=== PATIENT | female | born 1965 | race Two or more races ===

== ENCOUNTER 2019-05-16 06:34 | Day surgery (SDC) | payer OTHER ==
[~2019-05-16 06:34] MED LIST: DAPAGLIFLOZIN PO; KOMBIGLYZE XR1 EAC1 PO; LISINOPRIL10 MG PO; METFORMIN PO; PERCOCET 10-321 EACH PO; PROPANOLOL PO; TAPAZOLE5 M1 PO; [UNRECOGNIZED DRUG - OTHER] PO
== END 2019-05-16 15:07 | disposition home or self-care (01) ==
LOC: CIR.AMB 06:34
DX: S52.572A Other intraarticular fracture of lower end of left radius, initial encounter for closed fracture (principal)
CPT/HCPCS: 25609; 25118; 25280; 25337; C1776